=== PATIENT | male | born 1960 | race African-American/Black ===

== ENCOUNTER 2022-04-28 10:21 | Inpatient (IN) | payer MEDICARE, MEDICAID ==
[~2022-04-28] VITALS: Ht 182.9 cm; Wt 74.8 kg
[2022-04-28 11:42] LABS: CHLORIDE 112 mEq/L (98-107)
[2022-04-28 11:52] LABS: ETHANOL BLOOD < 10 mg/dL
[2022-04-28] MEDS ORDERED: IOHEXOL-350 100 ML BOTTLE ONE (11:56)
[2022-04-28 11:59] LABS: BASOPHILS % 0.6 % (0.0-2.0); EOSINOPHILS % 2.2 % (0.0-5.0); HEMOGLOBIN. 10.6 g/dL (14.0-18.0); LYMPHOCYTES % 25.4 % (20.0-50.0); MEAN CORPUSCULAR HEMOGLOBIN 26.4 pg (28.0-32.0); MEAN CORPUSCULAR VOLUME 82.4 fL (80.0-94.0); MEAN PLATELET VOLUME 8.7 fl (7.4-10.4); MONOCYTES % 5.2 % (2.0-8.0); NEUTROPHILS % 66.6 % (40.0-76.0); PLATELET 327 x1000/uL (130-400); RED CELL DISTRIBUTION WIDTH 15.7 % (11.6-14.6)
[2022-04-28] MEDS ORDERED: ACETAMINOPHEN 325MG TABLET PO PRN (16:45)
[2022-04-28] MEDS ORDERED: GUAIFENESIN 200MG/10ML SUGAR FREE UDC PO PRN (16:45)
[2022-04-28] MEDS ORDERED: ONDANSETRON HCL 4MG/2ML INJ IV PRN (16:45)
[2022-04-28] MEDS ORDERED: CLONIDINE 0.1MG TABLET PO PRN (16:45)
[2022-04-28] MEDS ORDERED: DOCUSATE SODIUM 100MG CAPSULE PO PRN (16:45)
[2022-04-28] MEDS ORDERED: MAGNESIUM/ALUMINUM HYDROXIDE/SIMETHICONE 30ML UDC PO PRN (16:45)
[2022-04-28] MEDS ORDERED: HYDROCODONE/ACETAMINOPHEN 5/325MG TABLET PO PRN (16:45)
[2022-04-28] MEDS: ENOXAPARIN 40MG/0.4ML SYR SUBCUT SCH (18:36)
[2022-04-28] MEDS: AMLODIPINE 10MG TABLET PO SCH (18:36)
[2022-04-28 20:00] VITALS: BP 130/82
[2022-04-28 23:22] VITALS: BP 130/82
[2022-04-29] VITALS: BP 133/88
[2022-04-29 04:00] VITALS: BP 145/89
[2022-04-29] MEDS ORDERED: MULTIVI (07:38)
[2022-04-29] MEDS ORDERED: RISP05 PO (07:38)
[2022-04-29] MEDS ORDERED: ASCO500C18 PO (07:38)
[2022-04-29] MEDS ORDERED: ACET-3163 PO (07:38)
[2022-04-29] MEDS ORDERED: LORA2DIS5 SQ (07:38)
[2022-04-29] MEDS ORDERED: LORA2TAB95 MT (07:38)
[2022-04-29] MEDS ORDERED: HYDR-4135 MT (07:38)
[2022-04-29] MEDS ORDERED: DIPH25CA83 PO (07:38)
[2022-04-29] MEDS ORDERED: LEVE500T19 MT (07:38)
[2022-04-29] MEDS ORDERED: AMLO5TAB88 MT (07:38)
[2022-04-29] MEDS ORDERED: ZINC1CAP2 (07:38)
[2022-04-29] MEDS ORDERED: ONDA4TAB50 PO (07:38)
[2022-04-29] MEDS ORDERED: LOSA100T32 MT (07:38)
[2022-04-29 08:00] VITALS: BP 152/82
[2022-04-29] MEDS: AMLODIPINE 10MG TABLET PO SCH (08:33)
[2022-04-29] MEDS: ASPIRIN 81MG EC TABLET PO SCH (08:33)
[2022-04-29 12:00] VITALS: BP 154/88
[2022-04-29] MEDS: LOSARTAN POTASSIUM 100 MG TABLET PO SCH (12:00)
[2022-04-29] MEDS: LEVETIRACETAM 500MG TABLET PO SCH ×2 (12:01→21:16)
[2022-04-29] MEDS ORDERED: NALOXONE HCL 0.4MG/ML VIAL IV PRN (13:15)
[2022-04-29] MEDS: HYDRALAZINE HCL 50MG TABLET PO SCH ×2 (13:19→21:16)
[2022-04-29 16:00] VITALS: BP 124/85
[2022-04-29] MEDS: ENOXAPARIN 40MG/0.4ML SYR SUBCUT SCH (17:02)
[2022-04-29 20:00] VITALS: BP 124/67
[2022-04-30] VITALS (7 sets, daily range): BP systolic 77–144; BP diastolic 45–86
[2022-04-30] MEDS: HYDRALAZINE HCL 50MG TABLET PO SCH ×2 (07:22→13:08)
[2022-04-30] MEDS: ASPIRIN 81MG EC TABLET PO SCH (08:45)
[2022-04-30] MEDS: LEVETIRACETAM 500MG TABLET PO SCH (08:45)
[2022-04-30] MEDS: LOSARTAN POTASSIUM 100 MG TABLET PO SCH (08:45)
[2022-04-30] MEDS: AMLODIPINE 10MG TABLET PO SCH (08:45)
== END 2022-04-30 15:10 | disposition home health service (06) | DRG 56 ==
LOC: ER 11:40 → 8WST 16:03 → EDBEDREQTM 16:05 → EDBEDREQ 16:05 → ENRESERV 16:42 → CANRESERV 16:42 → EDBEDREQSVC 17:09 → ENRESERV 17:31 → ER 20:06 → CANBEDREQ 20:58
PROVIDERS: ADMIT Hospitalist; ATTEND Hospitalist
DX: I69.398 Other sequelae of cerebral infarction (principal); E43 Unspecified severe protein-calorie malnutrition; R53.1 Weakness; E11.9 Type 2 diabetes mellitus without complications; G40.909 Epilepsy, unspecified, not intractable, without status epilepticus; I10 Essential (primary) hypertension; Z20.822 Contact with and (suspected) exposure to COVID-19; Z63.4 Disappearance and death of family member; Z68.22 Body mass index [BMI] 22.0-22.9, adult
CPT/HCPCS: 36415; 70496; 70498; 71045; 80053; 80320; 82140; 82962; 83605; 83880; 84484; 85025; 87426; 93970; 97116; 97162; 97166; 99291; G0378; J1650; Q9967; G0480